=== PATIENT | male | born 1955 | race Caucasian/White ===

== ENCOUNTER 2017-03-20 14:05 | Day surgery (SDC) | payer BC ==
[2017-03-20 14:16] VITALS: BP 154/70
== END 2017-03-20 14:06 | disposition home or self-care (01) ==
LOC: AMB 14:05
PROVIDERS: ATTEND Ophthalmology
PROC: 085K3ZZ Destruction of Left Lens, Percutaneous Approach (ICD-10-PCS; principal; 2017-03-20 12:00)
DX: H26.492 Other secondary cataract, left eye (principal); E11.9 Type 2 diabetes mellitus without complications; I10 Essential (primary) hypertension; Z68.28 Body mass index [BMI] 28.0-28.9, adult